=== PATIENT | male | born 1985 ===

== ENCOUNTER 2020-11-02 13:36 | Emergency (ER) | payer BC ==
[~2020-11-02] VITALS: Ht 190.5 cm; Wt 99.8 kg
[2020-11-02] MEDS ORDERED: DUI500 PO (17:15)
[2020-11-02] MEDS ORDERED: PERCOCET 5-3251 EACH PO (17:15)
[2020-11-02] MEDS ORDERED: CELECOXIB200 MG PO (17:15)
== END 2020-11-02 20:30 | disposition home or self-care (01) ==
LOC: ER 13:36
DX: S62.314A Displaced fracture of base of fourth metacarpal bone, right hand, initial encounter for closed fracture (principal); S62.316A Displaced fracture of base of fifth metacarpal bone, right hand, initial encounter for closed fracture; W22.8XXA Striking against or struck by other objects, initial encounter; Y93.89 Activity, other specified; Y92.89 Other specified places as the place of occurrence of the external cause; Y99.8 Other external cause status